=== PATIENT | male | born 2000 | race African-American/Black ===

== ENCOUNTER 2022-10-07 18:31 | Emergency (ER) | payer MEDICAID ==
[~2022-10-07] VITALS: Ht 177.8 cm; Wt 79.0 kg
[2022-10-07 18:52] VITALS: BP 131/80
== END 2022-10-07 21:34 | disposition home or self-care (01) ==
LOC: ER 18:31
DX: F41.9 Anxiety disorder, unspecified (principal); R03.0 Elevated blood-pressure reading, without diagnosis of hypertension; J45.909 Unspecified asthma, uncomplicated
CPT/HCPCS: 99283